=== PATIENT | female | born 1955 | race Caucasian/White ===

== ENCOUNTER → 2020-01-10 10:49 | Outpatient (CLI) | payer BC, SELFPAY ==
--- NOTE | ~2020-01-10 | MM_ITS ---
EXAMINATION: MM screening bailey BI w michell HISTORY: Screening TECHNIQUE: Craniocaudal and mediolateral oblique 3-D tomosynthesis images were obtained and synthetic 2-D images were generated. CAD analysis was submitted and interpreted. COMPARISON: Comparison to multiple prior studies sequentially, with oldest reviewed study dated 08/18. BREAST PARENCHYMAL COMPOSITION: The breasts are heterogenously dense, which may obscure small masses. FINDINGS: There are are multiple developing masses bilaterally which are obscured by fibroglandular t issue. There are no suspicious calcifications. IMPRESSION: 1. Multiple bilateral developing breast masses. 2. Additional mammographic views and possible breast ultrasound are recommended. BI-RADS Category 0: Incomplete: Needs additional imaging evaluation. Reviewed, dictated and finalized at location A. IMPRESSION: 1. Multiple bilateral developing breast masses. 2. Additional mammographic views and possible breast ultrasound are recommended . BI-RADS Category 0: Incomplete: Needs additional imaging evaluation.
== END ==
PROVIDERS: PCP Internal Medicine; Visit Provider Internal Medicine
DX: Z12.31 Encounter for screening mammogram for malignant neoplasm of breast (principal)
CPT/HCPCS: 77063; 77067

== ENCOUNTER 2020-02-02 14:18 | Outpatient (CLI) | payer BC, SELFPAY ==
--- NOTE | ~2020-02-02 | MMUS_ITS ---
EXAMINATION: MM diagnostic mammo BI, US breast BI complete HISTORY: History of previous biopsies. TECHNIQUE: Additional 3-D tomosynthesis images of the breasts were performed and synthetic 2-D images were generated. CAD analysis was submitted and interpreted. High resolution bilateral breast ultraso und was performed. COMPARISON: Comparison to multiple prior studies sequentially, with oldest reviewed study dated 12/08. BREAST PARENCHYMAL COMPOSITION: The breasts are heterogenously dense, which may obscure small masses. FINDINGS: MAMMOGRAPHIC FINDINGS: There are bilateral tissue markers. There are small bilateral masses scattered throughout both breast s which are obscured by dense fibroglandular tissue. There are no suspicious calcifications. ULTRASOUND: Bilateral breast ultrasound: Multiple bilateral cysts throughout both breasts accounting for masses s een on mammography. No solid masses are identified. IMPRESSION: 1. No evidence for malignancy in either breast. Benign findings. 2. Routine yearly screening mammogram and regular clinical breast examination are recommended. BI-RADS Category 2: Benign finding(s). Reviewed, dictated and finalized at location A. CTOR ASSEMBLER IMPRESSION: 1. No evidence for malignancy in either breast. Benign findings. 2. Routine yearly screening mammogram and regular clinical breast examination a re recommended. BI-RADS Category 2: Benign finding(s).
== END 2020-02-02 14:19 | disposition home or self-care (01) ==
LOC: ANHIMG 14:18
PROVIDERS: PCP Internal Medicine; Visit Provider Internal Medicine
DX: R92.8 Other abnormal and inconclusive findings on diagnostic imaging of breast (principal)
CPT/HCPCS: 76641; 77066

== ENCOUNTER 2020-02-14 11:17 | Outpatient (CLI) | payer BC, SELFPAY ==
--- NOTE | ~2020-02-14 | XR_ITS ---
EXAMINATION: XR chest 2V DATE: 02/14/2020 11:39 INDICATION: Malignant neoplasm of right kidney except renal pelvis. TECHNIQUE: Frontal and lateral views of the chest were obtained. COMPARISON: Chest 2 views 02/08/2019, CT abdomen and pelvis 02/01/2018 FINDINGS: The chest demonstrates clear lungs without pneumonia, pleural effusion, or pneumothorax. Th e heart size is normal. There are surgical clips from right nephrectomy. IMPRESSION: 1. No acute cardiopulmonary disease. Reviewed, dictated and finalized at location A. CUTTER HELPER
== END 2020-02-14 11:18 | disposition home or self-care (01) ==
PROVIDERS: PCP Internal Medicine; Visit Provider Urology
DX: C64.1 Malignant neoplasm of right kidney, except renal pelvis (principal)
CPT/HCPCS: 71046

== ENCOUNTER 2021-03-05 13:48 | Outpatient (CLI) | payer MEDICARE, SELFPAY ==
--- NOTE | ~2021-03-05 | XR_ITS ---
EXAMINATION: XR chest 2V DATE: 03/05/2021 14:05 INDICATION: Malignant right kidney post nephrectomy 7 years prior. TECHNIQUE: PA and lateral views of the chest were obtained. COMPARISON: Chest radiograph dated 02/14/2020 FINDINGS: Unchanged small calcified nodule at the left lower lung zone consistent with old granulomatous diseas e. No other airspace opacities, pulmonary edema, pleural effusion or pneumothorax. The cardiomediasti nal silhouette is normal. Mild eventration along the right hemidiaphragm. Surgical clips the right si de of the upper lumbar spine consistent with prior right nephrectomy. IMPRESSION: 1. No acute cardiopulmonary disease. Reviewed, dictated and finalized at location B. DIRECTOR
== END 2021-03-05 13:49 | disposition home or self-care (01) ==
PROVIDERS: PCP Internal Medicine; Visit Provider Urology
DX: C64.1 Malignant neoplasm of right kidney, except renal pelvis (principal)
CPT/HCPCS: 71046

== ENCOUNTER 2021-04-11 08:59 | Outpatient (CLI) | payer MEDICARE, SELFPAY ==
--- NOTE | ~2021-04-11 | MM_ITS ---
EXAMINATION: MM screening bailey BI w michell HISTORY: Screening TECHNIQUE: Craniocaudal and mediolateral oblique 3-D tomosynthesis images were obtained and synthetic 2-D images were generated. CAD analysis was submitted and interpreted. COMPARISON: Comparison to multiple prior studies sequentially, with oldest reviewed study dated 12/08. BREAST PARENCHYMAL COMPOSITION: Breast composed of scattered areas of fibroglandular density. FINDINGS: The right breast is stable without evidence for malignancy. There are developing masses thr oughout the left breast which are partially obscured by fibroglandular tissue. IMPRESSION: 1. Developing left breast masses. 2. Additional mammographic views and possible breast ultrasound are recommended. BI-RADS Category 0: Incomplete: Needs additional imaging evaluation. Reviewed, dictated and finalized at location A. SHEARER IMPRESSION: 1. Developing left breast masses. 2. Additional mammographic views and possible breast ultrasound are recommended . BI-RADS Category 0: Incomplete: Needs additional imaging evaluation.
== END 2021-04-11 09:00 | disposition home or self-care (01) ==
LOC: ANHIMG 09:02
PROVIDERS: PCP Internal Medicine; Visit Provider Internal Medicine
DX: Z12.31 Encounter for screening mammogram for malignant neoplasm of breast (principal); R92.8 Other abnormal and inconclusive findings on diagnostic imaging of breast
CPT/HCPCS: 77063; 77067

== ENCOUNTER 2021-04-30 12:59 | Outpatient (CLI) | payer MEDICARE, SELFPAY ==
--- NOTE | ~2021-04-30 | MMUS_ITS ---
EXAMINATION: MM diagnostic bailey LT w michell, US breast LT complete HISTORY: Follow-up left breast masses TECHNIQUE: Additional 3-D tomosynthesis images of the left breast were performed and synthetic 2-D im ages were generated. CAD analysis was submitted and interpreted. High resolution complete left breast ultrasound was performed. COMPARISON: Comparison to multiple prior studies sequentially, with oldest reviewed study dated 12/10. BREAST PARENCHYMAL COMPOSITION: The breasts are heterogenously dense, which may obscure small masses. FINDINGS: MAMMOGRAPHIC FINDINGS: There are multiple masses scattered throughout the left breast which are partially obscured by fibrog landular tissue. There is a tissue marker in the lower inner quadrant of the left breast from previou s benign biopsy. ULTRASOUND: Complete US of all 4 quadrants of the the left breast and retroareolar region was reviewed. There are multiple cysts of the left breast corresponding to the mammographic findings. The largest is located at 1:00, 4 cm from the nipple measuring 2.3 x 1.7 x 1.9 cm. No suspicious masses to suggest malignan cy. IMPRESSION: 1. No evidence for malignancy in the left breast. Benign findings. 2. Routine yearly screening mammogram and regular clinical breast examination are recommended. BI-RADS Category 2: Benign finding(s). Reviewed, dictated and finalized at location A. ELAIN TURNER IMPRESSION: 1. No evidence for malignancy in the left breast. Benign findings. 2. Routine yearly screening mammogram and regular clinical breast examination a re recommended. BI-RADS Category 2: Benign finding(s).
== END 2021-04-30 13:00 | disposition home or self-care (01) ==
LOC: ANHIMG 13:00
PROVIDERS: PCP Internal Medicine; Visit Provider Internal Medicine
DX: R92.8 Other abnormal and inconclusive findings on diagnostic imaging of breast (principal)
CPT/HCPCS: 76641; 77061; 77065; G0279

== ENCOUNTER 2022-06-26 07:54 | Outpatient (CLI) | payer MEDICARE, SELFPAY ==
--- NOTE | ~2022-06-26 | MM_ITS ---
EXAMINATION: MM screening bailey BI w michell HISTORY: Screening TECHNIQUE: Craniocaudal and mediolateral oblique 3-D tomosynthesis images were obtained and synthetic 2-D images were generated. CAD analysis was submitted and interpreted. COMPARISON: Comparison to multiple prior studies sequentially, with oldest reviewed study dated 08/18. BREAST PARENCHYMAL COMPOSITION: The breasts are heterogeneously dense, which may obscure small masses FINDINGS: There are multiple new bilateral breast masses with other previously identified masses bein g smaller. There are tissue markers in both breasts from previous biopsies. IMPRESSION: 1. Multiple bilateral breast masses some of which are new or larger and some smaller. 2. Additional mammographic views and possible breast ultrasound are recommended. BI-RADS Category 0: Incomplete: Needs additional imaging evaluation. Reviewed, dictated and finalized at location A. IMPRESSION: 1. Multiple bilateral breast masses some of which are new or larger and some sm aller. 2. Additional mammographic views and possible breast ultrasound are recommended . BI-RADS Category 0: Incomplete: Needs additional imaging evaluation.
== END 2022-06-26 07:55 | disposition home or self-care (01) ==
LOC: ANHIMG 07:55
PROVIDERS: PCP Family Medicine; Visit Provider Family Medicine
DX: Z12.31 Encounter for screening mammogram for malignant neoplasm of breast (principal); R92.8 Other abnormal and inconclusive findings on diagnostic imaging of breast
CPT/HCPCS: 77063; 77067

== ENCOUNTER 2022-07-15 13:28 | Outpatient (CLI) | payer MEDICARE, SELFPAY ==
--- NOTE | ~2022-07-15 | MM_ITS ---
EXAMINATION: MM diagnostic bailey BI w michell HISTORY: Bilateral breast masses on screening mammogram TECHNIQUE: Additional 3-D tomosynthesis images of the breasts were performed and synthetic 2-D images were generated. CAD analysis was submitted and interpreted. COMPARISON: 06/26/2022, 05/20/2021, 04/11/2021, 02/02/2020, 01/10/2020 FINDINGS: Spot compression views of the breasts demonstrate bilateral waxing and waning masses. None demonstrate suspicious interval change. No suspicious calcification or architectural distortion are i dentified. IMPRESSION: 1. No mammographic evidence of malignancy. 2. Recommend routine screening mammography in one year. BI-RADS Category 2: Benign finding(s). Reviewed, dictated and finalized at location A.
== END 2022-07-15 13:29 | disposition home or self-care (01) ==
PROVIDERS: PCP Family Medicine; Visit Provider Physician Assistant
DX: R92.8 Other abnormal and inconclusive findings on diagnostic imaging of breast (principal)
CPT/HCPCS: 77062; 77066; G0279

== ENCOUNTER 2023-05-27 08:49 | Outpatient (CLI) | payer MEDICARE, SELFPAY ==
--- NOTE | ~2023-05-27 | DEXA_ITS ---
Bone Density Report Name: JOSELO DIMAS Age: 68 Sex: Female Ethnicity: White Date of : 1955 Indication: postmenopausal; screening for osteoporosis; height loss; hysterectomy; Referring Provider: ALICE CONKLIN Study: Bone densitometry was performed. Exam Date: May 27, 2023 Accession number: [id number] Bone Density: Region BMD T-score Z-score Classification AP Spine(L1-L4) 1.070 0.2 2.2 Normal Femoral Neck (Left) 0.782 -0.6 1.1 Normal Total Hip (Left) 0.986 0.4 1.8 Normal Femoral Neck (Right) 0.794 -0.5 1.2 Normal Total Hip (Right) 1.033 0.7 2.1 Normal Total Hip Mean 1.010 0.6 2.0 Normal World Health Organization criteria for BMD impression classify patients as: Normal (T-score at or above -1.0), Osteopenia (T-score between -1.0 and -2.5), or Osteoporosis (T-score at or below -2.5). 10-year Fracture Risk: FRAX not reported because: All T-scores for Spine Total, Hip Total, Femoral Neck at or above -1.0 Clinical Information Provided by Patient: Has used the following medications: Vitamin D Has the following medical conditions: Hysterectomy Patient maximum height was 67 Menopause Age: 48 No regular weight bearing exercise Does not regularly consume dairy products Drinks caffeinated beverages Onset of menses at age 12 Number of children 3 Impression: The patient has normal bone mass. Discussion: BONE DENSITY IS ABOVE THE MINIMUM DESIRABLE LEVEL AT ALL SKELETAL SITES TESTED. This patient?s bone mineral density is above the minimum desirable level (T-score -1.0 or better) at all sites measured. The patient should follow a healthful lifestyle (good nutrition with adequate calcium and vitamin D, and appropriate weight-bearing exercise). Follow-Up: Consider repeating this study in 5 years or sooner if there is some new clinical indication. Reported by: AURELIO on 05/27/2023 9:16:00 AM. Reviewed, dictated and finalized at location ADayana LEVI
== END 2023-05-27 08:50 | disposition home or self-care (01) ==
LOC: ANHIMG 08:54
PROVIDERS: PCP Family Medicine; Visit Provider Physician Assistant
DX: Z78.0 Asymptomatic menopausal state (principal)
CPT/HCPCS: 77080

== ENCOUNTER 2023-08-21 09:12 | Outpatient (CLI) | payer MEDICARE, SELFPAY ==
--- NOTE | ~2023-08-21 | MM_ITS ---
EXAMINATION: MM screening bailey BI w michell HISTORY: Screening mammogram TECHNIQUE: Craniocaudal and mediolateral oblique 3-D tomosynthesis images were obtained and synthetic 2-D images were generated. CAD analysis was submitted and interpreted. COMPARISON: 07/15/2022 bilateral diagnostic mammogram 04/30/2021 diagnostic left mammogram incomplete left breast ultrasound 02/02/2020 bilateral diagnostic mammography and bilateral complete breast ultrasound examination BREAST PARENCHYMAL COMPOSITION: The breasts are heterogeneously dense, which may obscure small masses . FINDINGS: There are bilateral breast biopsy markers. History of prior bilateral benign breast biopsie s. There is waxing and waning of circumscribed opacities of variable size over serial examinations, cons istent with fibrocystic changes. There is no evidence of suspicious mass, calcification, or architectural distortion to suggest malig barrie in either breast. There has been no suspicious interval change. IMPRESSION: 1. Fibrocystic changes. No mammographic evidence of malignancy. 2. Recommend routine screening mammography in one year. BI-RADS Category 2: Benign finding(s). Reviewed, dictated and finalized at location B.
== END 2023-08-21 09:13 | disposition home or self-care (01) ==
LOC: ANHIMG 09:16
PROVIDERS: PCP Family Medicine; Visit Provider Family Medicine
DX: Z12.31 Encounter for screening mammogram for malignant neoplasm of breast (principal)
CPT/HCPCS: 77063; 77067

== ENCOUNTER 2024-09-01 15:25 | Outpatient (CLI) | payer MEDICARE, SELFPAY ==
--- NOTE | ~2024-09-01 | MM_ITS ---
EXAMINATION: MM screening [facility] BI w michell INDICATION: Asymptomatic, referred for screening mammogram COMPARISON: 08/21/2023 through 01/10/2020 TECHNIQUE: Digital Breast Tomosynthesis CC, MLO views of Both breasts were obtained with computer-ai ded detection to assist in interpretation of the study. FINDINGS: The breasts are heterogeneously dense, which may obscure small masses. There is a mass with partially obscured margins in the inferior medial right breast centered at 4 cm posterior to the nipple. Multiple circumscribed masses seen within the left breast unchanged. Calcif ic clip in both breasts. Elsewhere, there are no mammographic features of malignancy. IMPRESSION: 1. Right breast Mass. 2. No evidence of malignancy in the Left breast. RECOMMENDATION: Right breast Diagnostic mammogram with true lateral, appropriate spot compression views and an ultras ound if needed. BI-RADS 0, INCOMPLETE, NEEDS ADDITIONAL IMAGING EVALUATION Reviewed, dictated and finalized at location B. IMPRESSION: 1. Right breast Mass. 2. No evidence of malignancy in the Left breast. RECOMMENDATION: Right breast Diagnostic mammogram with true lateral, appropriate spot compressi on views and an ultrasound if needed. BI-RADS 0, INCOMPLETE, NEEDS ADDITIONAL IMAGING EVALUATION
--- OUTSIDE RECORDS SUMMARY | 2024-09-01 15:53 | XMS_ITS | Continuity of Care Document ---
Author Organization [facility] Address [address] [place] [address] Phone Care Team Providers Care Fret Saw Operator Name Role Phone [facility] Unavailable Unavail able Carmina Morris Unavailable Unavailable Procedures Procedure Date Vision Svcs Frames Purchases Progressive Lens, Polycarb Polycarb Lens Per Lens Roll And/or Luxembourgish Eye Exam & Treatment Refraction Advance Directives Directive Yes / No Effective Date File Name No Information Encounters Encounter Description Practice Location Reason(s) For Visit Diagnoses Date Provider Providers Copied on Encounter [facility], [address] [place] [address] [address], [place], [place], [id number], [place] tel:[phone] SEC [facility] No Information [address] [facility] . [address] [facility], [facility] [address], [place], [id number], [place]. tel:[phone] Referring Provider: Jonathon Jason, [address], [place], [address]. tel:[phone] g Provider: Carmina Morris, [address] [facility], [place], [address]. tel:[phone] 0833 [facility], [address] [place] [address] [address], [place], [place], [id number], [place] tel:[phone] [facility] No Information 0-200 8 Alejandro OD Jonathon. [address], [place], [address], [place]. tel:[phone] Family History Family Member Type Diagnosis Age At Onset No Information Payers Payer name Insurance type Covered green party ID Jadyn mart(s) [employer] Plan CI [id number] Social History Type Description Quantity Date Captured Comments Sex Female Smoking Status No Information Chief Complaint And Reason For Visit No Information Reason For Referral Reason For Referral No Information History Of Present Illness Encounter Date Complaint History Of Prese nt Illness No Information Functional Status Date Functional Assessmen t No Information Instructions Date Instruction Additional Infor mation No Information Assessments Type Assessment Date No Information Patient Care Teams Name Effective Dates (start - stop) Status Members No Information
--- OUTSIDE RECORDS SUMMARY | 2024-09-01 15:53 | XMS_ITS | Clinical Summary ---
Author Organization [facility] Address [address] [place] [address] Phone Care Team Providers Care Filter Washer Name Role Phone Lidia Chávez MD Primary Care Provider [phone] Allergies No known active allergies Medications lisinopril (PRINIVIL) 10 MG tablet Take 10 mg by mouth 1 (one) time each day 08/07/2020 Active rosuvastatin (CRESTOR) 5 MG tablet Take 5 mg by mouth 1 (one) time each day 08/24/2020 Active hydroCHLOROthiaz zabrina (MICROZIDE) 12.5 MG capsule 11/10/2020 Act juan Active Problems Problem Noted Date Diagnosed Date Personal history of nephrectomy 10/16/2020 Overview (10/16/2020): right Hypertension 10/16/2020 Hyperlipidemia 10/16/2020 Immunizations Immunization Administration Dates Next Due Sars-cov-2, Unspecified 07/08/2020 Family History Medical History Relation Comments Arthritis Father Cancer Father Hypertension Father Cancer Mother Hypertension Mother No Known Problems Paternal Grandmother Relation Status Comments Father Mother Paternal Grandmother Social History Tobacco Use Types Packs/Day Years Used Date Smoking Tobacco: Never Smokeless Tobacco: Never Tobacco Cessation:Counseling Given: Not Answered Alcohol Use Standard Drinks/Week Comments Yes 0 (1 standard drink = 0.6 oz pur e alcohol) Comments Unknown Sex and Gender Information Value Date Recorded Sex Assigned at Not on file Legal Sex Female 11:10 AM MDT Gender Identity Not on file Sexual Orientation Not on file Last Filed Vital Signs Vital Sign Reading Time Taken Comments Blood Pressure 132/76 03/10/2022 2:23 PM ENVIRONMENTAL SERVICES AIDE Pulse - - Temperature 36.5 C (97.7 F) 03/10/2022 2:23 PM ENVIRONMENTAL SERVICES AIDE Respiratory Rate 18 03/10/2022 2:23 PM ENVIRONMENTAL SERVICES AIDE Oxygen Saturation - - Inhaled Oxygen Concentration - - Weight 87.1 kg (192 lb) 03/10/2022 2:23 PM ENVIRONMENTAL SERVICES AIDE Height 170.2 cm (5' 7) 03/10/2022 2:23 PM ENVIRONMENTAL SERVICES AIDE Body Mass Index 30.07 03/10/2022 2:23 PM ENVIRONMENTAL SERVICES AIDE Plan of Treatment Health Maintenance Due Date Last Done Comments Pneumococcal PPSV23/PCV13 65 + Years / Low and Medium Risk (1 of 4 - PCV) 2005 Influenza Vaccine (Season Ended) 2024 Insurance Care Teams Filter Washer Relationship Specialty Start Date End Date Lidia Chávez MD [address] [place] [address] PCP - General Internal Medicine 03/10/22
== END 2024-09-01 15:26 | disposition home or self-care (01) ==
LOC: ANHIMG 15:28
PROVIDERS: PCP Family Medicine; Visit Provider Family Medicine
DX: Z12.31 Encounter for screening mammogram for malignant neoplasm of breast (principal); R92.8 Other abnormal and inconclusive findings on diagnostic imaging of breast
CPT/HCPCS: 77063; 77067

== ENCOUNTER 2024-10-03 12:44 | Outpatient (CLI) | payer MEDICARE, SELFPAY ==
--- NOTE | ~2024-10-03 | MMUS_ITS ---
EXAMINATION: MM diagnostic bailey RT w michell, US breast RT limited HISTORY: New right breast mass TECHNIQUE: Additional 3-D tomosynthesis images of the right breast were performed and synthetic 2-D i mages were generated. CAD analysis was submitted and interpreted. High resolution Limited right breas t ultrasound was performed. COMPARISON: Comparison to multiple prior studies sequentially, with oldest reviewed study dated 04/11. BREAST PARENCHYMAL COMPOSITION: Dense: The breasts are heterogeneously dense, which may obscure small masses FINDINGS: MAMMOGRAPHIC FINDINGS: There is a mass in the medial aspect of the right breast at approximately 3:00 position. There is a t issue marker from previous benign biopsy. There are no suspicious calcifications or architectural dis tortion. ULTRASOUND: Limited right breast ultrasound: At 11:00, 1 cm from the nipple there is a 9 mm cyst. At 12:00, 1 cm from there is an oval hypoechoic parallel oriented mass measuring 9 x 5 x 4 mm with internal vascular ity and slightly irregular lateral margins. At 12:00, 1 cm from the nipple there is an oval hypoechoi c mass measuring 9 mm parallel orientation, circumscribed margins and no internal vascularity, likely benign complicated cyst. At 2:00, 3 cm from the nipple there is a 1.6 cm cyst. At 3:00, 4 cm from th e nipple there is a cluster of microcysts measuring 1 cm. The cyst at 2:00, 3 cm from the nipple like ly corresponds to the mammographic finding. IMPRESSION: 1. Slightly irregular shaped mass at 12:00, 1 cm from the nipple measuring 9 mm. Given the internal v ascularity, follow-up evaluation recommended. 2. Ultrasound-guided right breast biopsy recommended. BI-RADS category 4, suspicious findings. Reviewed, dictated and finalized at location A. IMPRESSION: 1. Slightly irregular shaped mass at 12:00, 1 cm from the nipple measuring 9 mm . Given the internal vascularity, follow-up evaluation recommended. 2. Ultrasound-guided right breast biopsy recommended. BI-RADS category 4, suspicious findings.
--- OUTSIDE RECORDS SUMMARY | 2024-10-03 12:48 | XMS_ITS | Clinical Summary ---
Author Organization [facility] Address [address] [place] [address] Phone Care Team Providers Care Box Lidder Name Role Phone Lidia Chávez MD Primary Care Provider [phone] Allergies No known active allergies Medications lisinopril [...] Comments Blood Pressure 132/76 03/10/2022 2:23 PM COOKING CASING AND DRYING SUPERVISOR Pulse - - Temperature 36.5 C (97.7 F) 03/10/2022 2:23 PM COOKING CASING AND DRYING SUPERVISOR Respiratory Rate 18 03/10/2022 2:23 PM COOKING CASING AND DRYING SUPERVISOR Oxygen Saturation - - Inhaled Oxygen Concentration - - Weight 87.1 kg (192 lb) 03/10/2022 2:23 PM COOKING CASING AND DRYING SUPERVISOR Height 170.2 cm (5' 7) 03/10/2022 2:23 PM COOKING CASING AND DRYING SUPERVISOR Body Mass Index 30.07 03/10/2022 2:23 PM COOKING CASING AND DRYING SUPERVISOR Plan of Treatment Health Maintenance Due Date Last Done Comments Pneumococcal PPSV23/PCV13 65 + Years / Low and Medium Risk (1 of 2 - PCV) 2005 Influenza Vaccine (#1) 2024 Insurance Care Teams Box Lidder Relationship Specialty Start Date End Date Lidia Chávez MD [address] [place] [address] PCP - General Internal Medicine 03/10/22
--- OUTSIDE RECORDS SUMMARY | 2024-10-03 12:48 | XMS_ITS | Continuity of Care Document ---
Author Organization [facility] Address [address] [place] [address] Phone Care Team Providers Care Schedule Supervisor Name Role Phone [facility] Unavailable Unavail able Carmina Morris Unavailable Unavailable Procedures Procedure Date Vision Svcs Frames Purchases Progressive Lens, Polycarb Polycarb Lens Per Lens Roll And/or Serbian Eye Exam & Treatment Refraction Advance Directives Directive Yes / No Effective Date File Name No Information Encounters Encounter Description Practice Location Reason(s) For Visit Diagnoses Date Provider Providers Copied on Encounter [facility], [address] [place] [address] [address], [place], [place], [id number], [place] tel:[phone] [facility] No Information [address] [facility] . [address] [facility], [facility] [address], [place], [address], [place]. tel:[phone] Referring Provider: Jonathon Jason, [address], [place], [address]. tel:[phone] g Provider: Carmina Morris, [address] [facility], [place], [address]. tel:[phone] 8846 [facility], [address] [place] [address] [address], [place], [place], [address], [place] tel:[phone] [facility] No Information 0-200 8 Alejandro OD Jonathon. [address], [place], [address], [place]. tel:[phone] Family History Family Member Type Diagnosis Age At Onset No Information Payers Payer name Insurance type Covered republican ID Jadyn mart(s) [employer] Plan CI [id number] Social History Type Description Quantity Date Captured [...]
== END 2024-10-03 12:45 | disposition home or self-care (01) ==
PROVIDERS: PCP Family Medicine; Visit Provider Family Medicine
DX: R92.8 Other abnormal and inconclusive findings on diagnostic imaging of breast (principal)
CPT/HCPCS: 76642; 77061; 77065; G0279

== ENCOUNTER 2024-10-19 07:48 | Outpatient (CLI) | payer MEDICARE, SELFPAY ==
--- NOTE | ~2024-10-19 | US_ITS ---
EXAMINATION: US breast LT limited HISTORY: 69-year old female; with retracted left nipple referred by clinician for imaging evaluation. Patient states that her retracted nipple has been present for many years. COMPARISON: Mammograms dating back to 01/10/2020 FINDINGS: Targeted ultrasound of the subareolar left breast shows multiple cysts, some of which has fluid debris level. The largest is a simple cyst at 12:00, 1 cm from the nipple that measure 1.2 x 1 .2 x 1.8 cm. No suspicious cystic or solid mass seen. IMPRESSION: Benign appearing cysts that correlate to stable benign appearing masses on the mammography examinatio n. There is no suspicious cystic or solid mass that account for patient's chronic nipple retraction. BI-RADS 2, BENIGN Recommend continued screening mammography. Reviewed, dictated and finalized at location [] IMPRESSION: Benign appearing cysts that correlate to stable benign appearing masses on the mammography examination. There is no suspicious cystic or solid mass that accou nt for patient's chronic nipple retraction. BI-RADS 2, BENIGN Recommend continued screening mammography.
--- NOTE | ~2024-10-19 | MMUS_ITS ---
PROCEDURE: US breast biopsy RT w image, MM post biopsy diagnostic RT CLINICAL HISTORY: 69-year-old female with suspicious right breast mass at the o'clock location presen ts for ultrasound-guided core needle biopsy procedure. COMPARISON: 10/03/2024 Following informed consent including risks, benefits, and possible complications, the patient was bro ught to the ultrasound suite. A time-out procedure was performed. A preliminary ultrasound of the ri t breast was performed, redemonstrating enhancing hypoechoic mass at 12:00, 1 cm from the nipple. The patient was prepped and draped in the usual sterile fashion. 1% lidocaine was instilled into the subcutaneous tissues. 1% lidocaine with epinephrine was injected into the deep tissues just inferior to the lesion. Approximately 15cc lidocaine was administered. A small skin mason was made. Multiple co re samples were obtained with a 14-gauge multi pass biopsy needle. A post biopsy metal marker was adrien gavin at the biopsy site. Postprocedural mammogram of the right breast in craniocaudal and mediolateral projections reveal the post biopsy metal marker in good position. The patient tolerated the procedure well and was without i mmediate postprocedural complications. IMPRESSION: Successful ultrasound guided biopsy of right breast mass. A post biopsy metal marker was placed at the biopsy site, which is seen on postprocedural mammogram. The patient tolerated the procedure well without immediate postprocedure complications. The patient w as given postprocedural instructions and sent home in stable condition. Reviewed, dictated and finalized at location B. IMPRESSION: Successful ultrasound guided biopsy of right breast mass. A post bi opsy metal marker was placed at the biopsy site, which is seen on postprocedura l mammogram. The patient tolerated the procedure well without immediate postprocedure compli cations. The patient was given postprocedural instructions and sent home in sta ble condition.
--- OUTSIDE RECORDS SUMMARY | 2024-10-19 07:58 | XMS_ITS | Continuity of Care Document ---
Author Organization [facility] Address [address] [place] [address] Phone Care Team Providers Care Sighter Name Role Phone [facility] Unavailable Unavail able Carmina Morris Unavailable Unavailable Procedures Procedure Date Vision Svcs Frames Purchases Progressive Lens, Polycarb Polycarb Lens Per Lens Roll And/or Romansh Eye Exam & Treatment Refraction Advance Directives Directive Yes / No Effective Date File Name No Information Encounters Encounter Description Practice Location Reason(s) For Visit Diagnoses Date Provider Providers Copied on Encounter [facility], [address] [place] [address] [address], [place], [place], [id number], [place] tel:[phone] [facility] No Information 5200 9 [facility] . [address] [facility], [place] [address], [place], [address], [place]. tel:[phone] Referring Provider: Jonathon Jason, [address], [place], [address]. tel:[phone] g Provider: Carmina Morris, [address] [facility], [place], [address]. tel:[phone] [facility], [address] [place] [address] [address], [place], [place], [id number], [place] tel:[phone] [facility] No Information 0-200 8 Alejandro OD Jonathon. [address], [place], [address], [place]. tel:[phone] Family History Family Member Type Diagnosis Age At Onset No Information Payers Payer name Insurance type Covered alliance party ID Jadyn mart(s) [employer] Plan CI [id number] Social History Type Description Quantity Date Captured [...]
--- OUTSIDE RECORDS SUMMARY | 2024-10-19 07:58 | XMS_ITS | Clinical Summary ---
Author Organization [facility] Address [address] [place] [address] Phone Care Team Providers Care Executive Housekeeper Name Role Phone Lidia Chávez MD Primary Care Provider [phone] Allergies No known active allergies Medications lisinopril [...] Comments Blood Pressure 132/76 03/10/2022 2:23 PM GENERAL PARTNER Pulse - - Temperature 36.5 C (97.7 F) 03/10/2022 2:23 PM GENERAL PARTNER Respiratory Rate 18 03/10/2022 2:23 PM GENERAL PARTNER Oxygen Saturation - - Inhaled Oxygen Concentration - - Weight 87.1 kg (192 lb) 03/10/2022 2:23 PM GENERAL PARTNER Height 170.2 cm (5' 7) 03/10/2022 2:23 PM GENERAL PARTNER Body Mass Index 30.07 03/10/2022 2:23 PM GENERAL PARTNER Plan of Treatment Health Maintenance Due Date Last Done Comments Pneumococcal PPSV23/PCV13 65 + Years / Low and Medium Risk (1 of 2 - PCV) 2005 Influenza Vaccine (#1) 2024 Insurance Care Teams Executive Housekeeper Relationship Specialty Start Date End Date Lidia Chávez MD [address] [place] [address] PCP - General Internal Medicine 03/10/22
--- NOTE | 2024-10-19 09:19 | S_PTH ---
PATIENT: Nehal Latif LOC: [facility] U#:[id number] AGE/SX: 69/F ROOM: RE10/19/[address]: Jerilyn Mays MD : 1955 BED: DIS: 10/19/2024 SPEC #: [id number] RECD: 10/19/24 10:12 STATUS: CHEN REDawit #: [id number] DEVIN: 10/19/24 09:[address]: Jerilyn Mays DEPT: [facility] Surgical RECD BY: Taylor Santacruz ENTERED: 10/19/24 10:12 SP TYPE: Surgical OTHR DR: Lidia Chávez, Tissues: A - Breast Biopsy Procedures: Hematoxylin and Eosin Stain Gross and Microscopic Level 4
== END 2024-10-19 07:49 | disposition home or self-care (01) ==
LOC: ANHIMG 07:54
PROVIDERS: PCP Family Medicine; Visit Provider Surgery
DX: N64.59 Other signs and symptoms in breast (principal); N63.15 Unspecified lump in the right breast, overlapping quadrants
CPT/HCPCS: 19083; 76642; 77065; 88305; A4648

== ENCOUNTER 2024-11-03 08:43 | Outpatient (CLI) | payer MEDICARE, SELFPAY ==
--- NOTE | ~2024-11-03 | MMUS_ITS ---
EXAMINATION: US_MAGSEEDRT_US, MM post biopsy diagnostic RT CLINICAL HISTORY: 69 year old female with discordant RIGHT breast benign lesion containing metallic c lip diagnosed at Ultrasound-guided core needle biopsy on 10/19/2024. Patient presents for ultrasound g uided Magseed localization of the clip within the lesion in the 12 o'clock right breast. After informed consent was obtained, the patient was brought into the ultrasound room. A time-out pro cedure was performed. Preliminary images of the right breast were obtained to localize the target. A needle was then placed into the breast and ultrasound images were obtained to confirm position of the needle. The Magseed clip deployed immediately adjacent to the biopsy clip. Postprocedure mammogram o f the right breast showed the Magseed in good position. IMPRESSION: Successful ultrasound-guided Magseed localization of right breast lesion. The patient to lerated the procedure well with no immediate post procedure complications. Reviewed, dictated and finalized at location B. IMPRESSION: Successful ultrasound-guided Magseed localization of right breast l esion. The patient tolerated the procedure well with no immediate post procedu re complications.
--- OUTSIDE RECORDS SUMMARY | 2024-11-03 08:47 | XMS_ITS | Continuity of Care Document ---
Author Organization [facility] Address [address] [place] [address] Phone Care Team Providers Care Measurement Coordinator Name Role Phone [facility] Unavailable Unavail able Carmina Morris Unavailable Unavailable Procedures Procedure Date Vision Svcs Frames Purchases Progressive Lens, Polycarb Polycarb Lens Per Lens Roll And/or Hebrew Eye Exam & Treatment Refraction Advance Directives Directive Yes / No Effective Date File Name No Information Encounters Encounter Description Practice Location Reason(s) For Visit Diagnoses Date Provider Providers Copied on Encounter [facility], [address] [place] [address] [address], [place], [place], [id number], [place] tel:[phone] [facility] No Information 5200 9 [facility] . [address] [facility], [facility] [address], [place], [id number], [place]. tel:[phone] Referring Provider: Jonathon Jason, [address], [place], [address]. tel:[phone] g Provider: Carmina Morris, [address] [facility], [place], [address]. tel:[phone] [facility], [address] [place] [address] [address], [place], [place], [address], [place] tel:[phone] [facility] No Information 0-200 8 Alejandro OD Jonathon. [address], [place], [address], [place]. tel:[phone] Family History Family Member Type Diagnosis Age At Onset No Information Payers Payer name Insurance type Covered constitution party ID Jadyn mart(s) [employer] [facility] Plan CI [id number] Social History Type Description Quantity Date Captured [...]
--- OUTSIDE RECORDS SUMMARY | 2024-11-03 08:47 | XMS_ITS | Clinical Summary ---
Author Organization [facility] Address [address] [place] [address] Phone Care Team Providers Care Seed Cone Picker Name Role Phone Lidia Chávez MD Primary Care Provider [phone] Allergies No known active allergies Medications lisinopril [...] Comments Blood Pressure 132/76 03/10/2022 2:23 PM MIS SPECIALIST Pulse - - Temperature 36.5 C (97.7 F) 03/10/2022 2:23 PM MIS SPECIALIST Respiratory Rate 18 03/10/2022 2:23 PM MIS SPECIALIST Oxygen Saturation - - Inhaled Oxygen Concentration - - Weight 87.1 kg (192 lb) 03/10/2022 2:23 PM MIS SPECIALIST Height 170.2 cm (5' 7) 03/10/2022 2:23 PM MIS SPECIALIST Body Mass Index 30.07 03/10/2022 2:23 PM MIS SPECIALIST Plan of Treatment Health Maintenance Due Date Last Done Comments Pneumococcal PPSV23/PCV13 65 + Years / Low and Medium Risk (1 of 2 - PCV) 2005 Influenza Vaccine (#1) 2024 Insurance Care Teams Seed Cone Picker Relationship Specialty Start Date End Date Lidia Chávez MD [address] [place] [address] PCP - General Internal Medicine 03/10/22
== END 2024-11-03 08:44 | disposition home or self-care (01) ==
PROVIDERS: PCP Family Medicine; Visit Provider Surgery
DX: N63.15 Unspecified lump in the right breast, overlapping quadrants (principal)
CPT/HCPCS: 19285; 77065; A4648

== ENCOUNTER 2024-11-04 07:50 | Outpatient (CLI) | payer MEDICARE, SELFPAY ==
--- OUTSIDE RECORDS SUMMARY | 2024-11-04 07:59 | XMS_ITS | Clinical Summary ---
Author Organization [facility] Address [address] [place] [address] Phone Care Team Providers Care Network Support Name Role Phone Lidia Chávez MD Primary Care Provider [phone] Allergies No known active allergies Medications lisinopril [...] Comments Blood Pressure 132/76 03/10/2022 2:23 PM REAL ESTATE DEVELOPER Pulse - - Temperature 36.5 C (97.7 F) 03/10/2022 2:23 PM REAL ESTATE DEVELOPER Respiratory Rate 18 03/10/2022 2:23 PM REAL ESTATE DEVELOPER Oxygen Saturation - - Inhaled Oxygen Concentration - - Weight 87.1 kg (192 lb) 03/10/2022 2:23 PM REAL ESTATE DEVELOPER Height 170.2 cm (5' 7) 03/10/2022 2:23 PM REAL ESTATE DEVELOPER Body Mass Index 30.07 03/10/2022 2:23 PM REAL ESTATE DEVELOPER Plan of Treatment Health Maintenance Due Date Last Done Comments Pneumococcal PPSV23/PCV13 65 + Years / Low and Medium Risk (1 of 2 - PCV) 2005 Influenza Vaccine (#1) 2024 Insurance Care Teams Network Support Relationship Specialty Start Date End Date Lidia Chávez MD [address] [place] [address] PCP - General Internal Medicine 03/10/22
--- OUTSIDE RECORDS SUMMARY | 2024-11-04 07:59 | XMS_ITS | Continuity of Care Document ---
Author Organization [facility] Address [address] [place] [address] Phone Care Team Providers Care Chart Calculator Name Role Phone [facility] Unavailable Unavail able Carmina Morris Unavailable Unavailable Procedures Procedure Date Vision Svcs Frames Purchases Progressive Lens, Polycarb Polycarb Lens Per Lens Roll And/or French Eye Exam & Treatment Refraction Advance Directives Directive Yes / No Effective Date File Name No Information Encounters Encounter Description Practice Location Reason(s) For Visit Diagnoses Date Provider Providers Copied on Encounter [facility], [address] [place] [address] [address], [place], [place], [id number], [place] tel:[phone] [facility] No Information 5200 9 [facility] . [address] [facility], [facility] [address], [place], [address], [place]. tel:[phone] Referring Provider: Jonathon Jason, [address], [place], [address]. tel:[phone] g Provider: Carmina Morris, [address] [facility], [place], [address]. tel:[phone] formerly [facility], [address] [place] [address] [address], [place], [place], [address], [place] tel:[phone] [facility] No Information 0-200 8 Alejandro OD Jonathon. [address], [place], [address], [place]. tel:[phone] Family History Family Member Type Diagnosis Age At Onset No Information Payers Payer name Insurance type Covered green party ID Jadyn mart(s) [employer] Plan CI [id number] Social History Type Description Quantity Date Captured [...]
--- NOTE | 2024-11-04 08:00 | ECG_ITS ---
Test Date: 2024-11-04 08:02:18 Measurements Intervals [place]ountain Rate: 64 P: 38 SD: 135 QRS: -39 QRSD: 83 T: -39 QT: 382 QTc: 395 Interpretive Statements SINUS RHYTHM LEFT AXIS DEVIATION LEFT ATRIAL ENLARGEMENT POOR R WAVE PROGRESSION ST-T WAVE ABNORMALITY IN ANTEROLAT/INF LEADS- CONSIDER ISCHEMIA BASELINE ARTIFACT- I, II, III, AVR, AVL, AVF, V4-V6 ABNORMAL ECG No previous ECG available for comparison Electronically Signed On 11-04-2024 08:16:23 CDT by Dilshad Cole D.O.
[2024-11-04 08:23] LABS: INR 0.9; Prothrombin Time 12.4 Seconds (11.1-14.7)
[2024-11-04 08:25] LABS: Partial Thromboplastin Time 29.4 Seconds (22.3-36.8)
[2024-11-04 08:31] LABS: Anion Gap 9 mmol/L (4-12); Blood Urea Nitrogen 17 mg/dL (7-17); Calcium 9.9 mg/dL (8.4-10.2); Carbon Dioxide 25 mmol/L (22-30); Chloride 107 mmol/L (98-107); Estimated Glomerular Filt Rate 44; Glucose 101 mg/dL (65-110); Potassium 4.4 mmol/L (3.4-5.0); Sodium 141 mmol/L (137-145)
== END 2024-11-04 07:51 | disposition home or self-care (01) ==
LOC: ANHSURGERY 07:54
PROVIDERS: Anesthesiology; PCP Family Medicine; Visit Provider Surgery
DX: I12.9 Hypertensive chronic kidney disease with stage 1 through stage 4 chronic kidney disease, or unspecified chronic kidney disease (principal); N18.32 Chronic kidney disease, stage 3b; Z01.818 Encounter for other preprocedural examination
CPT/HCPCS: 36415; 80048; 85610; 85730; 93005

== ENCOUNTER 2024-11-10 02:23 | Day surgery (SDC) | payer MEDICARE, SELFPAY ==
--- NOTE | 2024-11-02 09:30 | PC.NURSE ---
Report to the Outpatient Waiting Room, entrance under the green pavilion located off [facility], at time _6am on date __11/10/24 . Planned Procedure Time: __7:30 am .? Time changes happen often and if your time is changed the preop area will call you the afternoon before. - You and your visitor will be asked to self-screen and do not enter if you have any COVID symptoms. Please call surgeon if you need to reschedule. - A mask is optional within the hospital at this time. Patients may have clear liquids (water, carbonated beverages, clear teas, apple juice) until 3 hours prior to surgery ( 4:30 am) with a maximum of 20 ounces. - No food from midnight until time of surgery and no smoking, or chewing tobacco (or any form of nicotine). No chewing gum, candy or mints. - Take only the following medications with a SIP of water on the morning of surgery: _ESCITALOPRAM DO NOT STOP ANY OF YOUR OTHER PRESCRIPTION MEDICATIONS PRIOR TO SURGERY EXCEPT THE FOLLOWING Hold all vitamins and supplements for 3 days per anesthesiologist.LAST DOSE 11/06/24 Medications to discontinue per physician NONE Please no make-up, nail setswana, hairspray, perfume, deodorant, or body powder the day of surgery.? No jewelry (including any body piercings) or valuables the day of surgery, leave them at home.? Please take a shower or bath the night before, or the morning of, surgery with an antibacterial soap.? Wear comfortable, loose fitting clothing.? Children are encouraged to wear pajamas. - Jewelry must be removed prior to entering the operating room.? Rings and piercings that are not removed may be cut off. - The hospital will not accept responsibility for valuables.? - Please leave all valuables, including medications, at home the day of surgery. If you are going home after surgery, a licensed driver manager must drive you home.? - NO public transportation without another adult if you receive anesthesia. - We recommend that an adult stay with you for 24 hours following discharge. - We also recommend that you do not drive, make important decision, drink alcoholic beverages, or take any drugs that were not prescribed by your health care provider for at least 24 hours after your discharge time. Follow any additional instructions given to you from your surgeon. Telephone instructions given to __PATIENT and asked if any additional questions and then verbalized understanding. Patient advised to call surgeon office or pre surgery nurse liaison [phone] if any additional questions.
[2024-11-02 09:41] VITALS: BMI 29.7
[2024-11-10] VITALS (8 sets, daily range): BP systolic 121–155; BP diastolic 59–82; PULSE 64–81; RESP 10–16; TEMP 36.2; O2SAT 98–100
--- NOTE | ~2024-11-10 | MM_ITS ---
[id number] 11/10/2024 08:34 Indication: Post surgical biopsy of right breast Procedure: Faxitron trauma image of biopsy specimen Comparison: 11/13/2024 Findings: Postbiopsy specimen contains 2 markers of interest from previous biopsies. Impression: 1: Specimen contains biopsy markers. Please refer to procedural report for details. Reviewed, dictated and finalized at location A. Impression: 1: Specimen contains biopsy markers. Please refer to procedural report for deta ils.
[2024-11-10] MEDS: LACTATED RINGERS 1,000 ML 30 ML IV CONT (06:15)
[2024-11-10] MEDS: ACETAMINOPHEN 500 MG TABLET 1000 MG PO (06:15)
--- NOTE | 2024-11-10 07:04 | WPDHPUPDATE1 ---
History and Physical Update Update Date/Time: 11/10/24 07:04 - Right breast lumpectomy with Mag seed localization, possible adjacent tissue transfer. History and Physical has been reviewed, including an updated exam of the patient. There are NO changes in the patient's condition. Risks, benefits, and alternatives have been discussed and questions answered. Patient agrees to proceed with procedure.
--- NOTE | 2024-11-10 07:24 | P.PNAN_ITS ---
Anes - Initial Pre Proc Eval Procedure: Operation Date: 11/10/24 07:30 Proposed Procedures p Right Breast Lumpectomy with Mag Seed Localization, Possible Adjacent Tissue Transfer - Jerilyn Mays MD Date/Time: 11/10/24 07:24 Surgeon: Jerilyn Mays MD Pre Op Diagnosis: unspec lump right breast Patient Data Age: 69 Gender: F Height: 1.65 m Weight: 81.2 kg Allergies Allergy/AdvReac Type Severity Reaction Status Date / Time No Known Allergies Allergy Verified 11/02/24 09:28 Home Medications ?Medication ?Instructions ?Recorded ?Confirmed ?Type cholecalciferol (vitamin D3) 50 50 mcg PO DAILY 03/04/21 11/02/24 History mcg (2,000 unit) capsule famotidine 20 mg tablet 20 mg PO DAILY 03/04/21 11/02/24 History cetirizine 10 mg capsule (Zyrtec) 10 mg PO DAILY PRN allergy symptoms 02/12/22 11/02/24 History lisinopril 10 mg tablet 10 mg PO DAILY #90 tabs 04/18/24 11/02/24 Rx rosuvastatin 5 mg tablet (Crestor) 5 mg PO DAILY #90 tabs 04/18/24 11/02/24 Rx escitalopram oxalate 5 mg tablet 5 mg PO DAILY #30 tabs 10/18/24 11/02/24 Rx Patient hx anesthesia problems: none Family hx anesthesia problems: none Results Review: All pre-operative results and documents have been reviewed as part of the pre- operative evaluation. [facility] Past Medical History Medical History Basal cell carcinoma CKD (chronic kidney disease) HTN (hypertension) GERD (gastroesophageal reflux disease) Cancer of kidney Seasonal allergies Abnormal mammogram of both breasts Surgical History Surgical History H/O: hysterectomy Family History Family History Sibling Hypertension Family history of rheumatoid arthritis Father Family history of glaucoma Hypertension Family history of gastrointestinal disorder Patient's father is in good health Family history of arthritis Family history of malignant neoplasm Mother Hypertension Family history of malignant neoplasm Other Carcinoma of colon Cerebrovascular accident Social History Social History Smoking status: Never smoker Second hand tobacco smoke exposure: No Alcohol intake: current Alcohol use details: 1-2 per month. wine or beer. Substance use: never Substance use type: does not use Do You Feel Safe in your Home?: Yes Lack of Transportation: No Lack of Food: Never True Current Housing: I Have Housing Concerned About Future Housing: No Difficulty Paying Gas/Electric Bills: No Difficulty Paying for Meds: No Currently Unemployed: No Education: Associate Degree Difficulty w/ Childcare or Family Care: No Living arrangements: with family Gender identity (if verbalized by the patient): Female Spiritual care concerns: No Agree to blood products: Yes Anes - Eval Final PreProcedure Day of Procedure 11/10/24 07:24 Patient weight: normal Heart: regular rate and rhythm Lungs: clear to auscultation Airway: Mallampati scale class II Neurological: alert and oriented Last oral intake: >/= 8 hours ASA classification: III Emergent: no Anesthetic plan: proceed Anesthesia type and monitoring: general LMA and standard monitoring Results Review: All pre-operative results and documents have been reviewed as part of the pre- operative evaluation. Informed Consent: The patient's anesthetic plan and its attendant risks and benefits were discussed with the patient/family/POA. Questions were solicited and answers provided to the satisfaction of the patient/family/POA.
[2024-11-10] MEDS: ceFAZolin 2 GM in SODIUM CHLORIDE 0.9% IV 50 ML 100 ML IVPB (07:32)
--- NOTE | 2024-11-10 08:25 | S_PTH ---
PATIENT: Nehal Latif LOC: [facility] U#:[id number] AGE/SX: 69/F ROOM: RE11/10/[address]: Jerilyn Mays MD : 1955 BED: DIS: 11/10/2024 SPEC #: [id number] RECD: 11/10/24 08:39 STATUS: CHEN REQ #: [id number] DEVIN: 11/10/24 08:[address]: Jerilyn Mays DEPT: [facility] Surgical RECD BY: Taylor Santacruz ENTERED: 11/10/24 08:42 SP TYPE: Surgical OTHR DR: Lidia Chávez, Tissues: A - Breast Lumpectomy B - Breast Tissue Procedures: Hematoxylin and Eosin Stain Gross and Microscopic Level 4 Gross and Microscopic Level 5
--- NOTE | 2024-11-10 08:45 | W.PM.PROC2 ---
Procedure Note - Detailed Date of Procedure 11/10/24 Pre-op Diagnosis Right breast mass with discordant core needle biopsy findings Post-op Diagnosis Same Procedure Performed Right breast lumpectomy with magseed localization Surgeon Jerilyn Mays MD Anesthesia MAC Description of Procedure Patient was identified in the pre-operative area and brought to the OR suite. She underwent tumor localization previously by IR with magseed placement. She was laid supine in the operating table and sequential compression devices were applied. General anesthesia was induced without difficulties. The right chest was prepped and draped in a sterile fashion. The sentimag probe was used to identify the area where the magseed was placed and a superior periareolar incision was made. Dissection was carried down through the subcutaneous tissue into the breast tissue. The area of concern was identified using sentimag probe, and a rim of normal breast tissue was excised along with the mass as our lumpectomy specimen. Once the specimen was completely excised, it was oriented using surgical paint according to machine hose cutter instructions. The specimen was placed in the faxitron and 2 radiographs were obtained and sent to Radiology for radiographic confirmation of mass, biopsy marker and magseed within the specimen. Once the radiographic confirmation was received, the wound was irrigated with saline and hemostasis was assured. The deep dermal layer was approximated using interrupted 3-0 vicryl followed by 4-0 monocryl for the skin. Dermabond was applied followed by a surgical bra. Patient was awoken from anesthesia and taken to the recovery area in stable condition. All needles, instruments and sponge counts were correct as reported by the operating room staff. Patient tolerated the procedure well with no immediate complications. Estimated Blood Loss 10 Pathology Yes Complications No immediate complications Condition Stable Disposition PACU [facility] Billing Surgery - Charge Forward: Surgery Billing (CPT 60651)
[2024-11-10] MEDS: oxyCODONE HCL (*CRX) 5 MG TAB IR PO (09:57)
--- NOTE | 2024-11-10 16:33 | WPDANESPN ---
Anes - Prog Note Post-Op Date/Time: 11/10/24 16:33 Cardiovascular status: normal Respiratory status: normal Airway patency: baseline Mental status: baseline Post-Op hydration status: normal Vital Signs: Last Vital Signs Temp 36.2 C L 11/10/24 08:54 Pulse 64 11/10/24 10:40 Resp 16 11/10/24 10:40 BP 121/69 11/10/24 10:40 Pulse Ox 98 11/10/24 09:34 O2 Del Method Room Air 11/10/24 10:40 O2 Flow Rate 8 11/10/24 09:05 Pain Score (VAS): 3 I/O: Intake & Output 11/10/24 11/10/24 11/10/24 07:59 15:59 23:59 Intake Total 100 Balance 100 Post-procedural complaints: none Other Findings: Dr. Mays called to ask if tongue swelling could be caused from her LMA placement earlier today and if we could evaluate patient. I evaluated and saw some redness on back of pharynx. Not knowing patient's baseline tongue size it doesn't appear overly large but doesn't look traumatic in nature. I explained to patient that sore throat could be explained by LMA which would be expected but tongue swelling appears to be a different issue. More likely some allergic reaction or related to the lisinopril however will defer to ER physician for medical decision making.
== END 2024-11-10 10:48 | disposition home or self-care (01) ==
PROVIDERS: PCP Family Medicine; Visit Provider Surgery
PROC: (CPT 19301; principal; 2024-11-10 07:30)
DX: D24.1 Benign neoplasm of right breast (principal); I12.9 Hypertensive chronic kidney disease with stage 1 through stage 4 chronic kidney disease, or unspecified chronic kidney disease; N18.9 Chronic kidney disease, unspecified; K21.9 Gastro-esophageal reflux disease without esophagitis; Z98.890 Other specified postprocedural states; Z85.528 Personal history of other malignant neoplasm of kidney; Z85.828 Personal history of other malignant neoplasm of skin; Z80.0 Family history of malignant neoplasm of digestive organs
CPT/HCPCS: 19301; 76098; 88305; 88307; 96372; 96374; 96375; 99284; J0690; A9270; J0166; J1100; J1200; J1596; J2003; J2250; J2405; J2704; J3010; J7120; Q9968

== ENCOUNTER 2024-11-10 14:46 | Emergency (ER) | payer MEDICARE, SELFPAY ==
[2024-11-10] VITALS (23 sets, daily range): BP systolic 115–148; BP diastolic 48–98; PULSE 63–82; RESP 12–16; TEMP 36.5; O2SAT 94–98
--- OUTSIDE RECORDS SUMMARY | 2024-11-10 14:48 | XMS_ITS | Clinical Summary ---
Author Organization [facility] dos santos Address [address] [place] [phone] Phone Care Team Providers Care Operator And Truck Driver Name Role Phone Lidia Chávez MD Primary Care Provider [phone] Allergies No known active allergies Medications lisinopril [...] Comments Blood Pressure 132/76 03/10/2022 2:23 PM CAR PUSHER Pulse - - Temperature 36.5 C (97.7 F) 03/10/2022 2:23 PM CAR PUSHER Respiratory Rate 18 03/10/2022 2:23 PM CAR PUSHER Oxygen Saturation - - Inhaled Oxygen Concentration - - Weight 87.1 kg (192 lb) 03/10/2022 2:23 PM CAR PUSHER Height 170.2 cm (5' 7) 03/10/2022 2:23 PM CAR PUSHER Body Mass Index 30.07 03/10/2022 2:23 PM CAR PUSHER Plan of Treatment Health Maintenance Due Date Last Done Comments Pneumococcal PPSV23/PCV13 65 + Years / Low and Medium Risk (1 of 2 - PCV) 2005 Influenza Vaccine (#1) 2024 Insurance Care Teams Operator And Truck Driver Relationship Specialty Start Date End Date Lidia Chávez MD [address] [place] [address] PCP - General Internal Medicine 03/10/22
--- OUTSIDE RECORDS SUMMARY | 2024-11-10 14:48 | XMS_ITS | Continuity of Care Document ---
Author Organization [facility] Address [address] [place] [address] Phone Care Team Providers Care Automobile Lights Assembler Name Role Phone [facility] Unavailable Unavail able Carmina Morris Unavailable Unavailable Procedures Procedure Date Vision Svcs Frames Purchases Progressive Lens, Polycarb Polycarb Lens Per Lens Roll And/or [place] Eye Exam & Treatment Refraction Advance Directives Directive Yes / No Effective Date File Name No Information Encounters Encounter Description Practice Location Reason(s) For Visit Diagnoses Date Provider Providers Copied on Encounter [facility], [address] [place] [address] [address], [place], [place], [id number], [place] tel:[phone] SEC [facility] No Information 5[address] [facility] . [address] [facility], [facility] [address], [place], [id number], [place]. tel:[phone] Referring Provider: Jonathon Jason, [address], [place], [address]. tel:[phone] g Provider: Carmina Morris, [address] [facility], [place], [address]. tel:[phone] 5858 [facility], [address] [place] [address] [address], [place], [place], [id number], [place] tel:[phone] [facility] No Information 0-200 8 Alejandro OD Jonathon. [address], [place], [address], [place]. tel:[phone] Family History Family Member Type Diagnosis Age At Onset No Information Payers Payer name Insurance type Covered alliance party ID Jadyn mart(s) [employer] [facility] Plan CI [id number] Social History Type Description Quantity Date Captured [...]
[2024-11-10] MEDS: dexAMETHasone SOD PHOS INJ 10 MG/ML 1 ML VIAL (15:02)
[2024-11-10] MEDS: FAMOTIDINE 20 MG/2 ML VIAL (15:02)
[2024-11-10] MEDS: EPINEPHrine HCL INJ 1 MG/ML AMPUL (15:02)
--- NOTE | 2024-11-10 15:03 | ED.GENADULT ---
HPI - General Adult General Chief complaint: Allergic Reaction Stated complaint: allergic reaction Time Seen by Provider: 11/10/24 14:49 History of Present Illness HPI narrative: This is a 69-year-old female presenting with tongue swelling. Patient had a lumpectomy performed earlier today at our hospital. During that time she was sedated and an LMA was placed. She went home and when she woke up at 2:00 p.m. she noticed that her tongue was significantly larger. It makes it hard to breathe when she is laying flat if she sits up it does not cause her any issues. She is able to swallow her own secretions. She is not short of breath. She does not have any other signs of allergic reaction including hives, wheezing, nausea vomiting or diarrhea. She is on lisinopril. Related Data Home Medications ?Medication ?Instructions ?Recorded ?Confirmed ?Last Taken ?Type cholecalciferol (vitamin D3) 50 50 mcg PO DAILY 03/04/21 11/02/24 Unknown History mcg (2,000 unit) capsule famotidine 20 mg tablet 20 mg PO DAILY 03/04/21 11/02/24 Unknown History cetirizine 10 mg capsule (Zyrtec) 10 mg PO DAILY PRN allergy symptoms 02/12/22 11/02/24 Unknown History Allergies Allergy/AdvReac Type Severity Reaction Status Date / Time No Known Allergies Allergy Verified 11/10/24 15:02 [facility] Past Medical History Medical History Basal cell carcinoma CKD (chronic kidney disease) HTN (hypertension) GERD (gastroesophageal reflux disease) Cancer of kidney Seasonal allergies Abnormal mammogram of both breasts Surgical History Surgical History H/O: hysterectomy Family History Family History Sibling Hypertension Family history of rheumatoid arthritis Father Family history of glaucoma Hypertension Family history of gastrointestinal disorder Patient's father is in good health Family history of arthritis Family history of malignant neoplasm Mother Hypertension Family history of malignant neoplasm Other Carcinoma of colon Cerebrovascular accident Social History Social History Smoking status: Never smoker Second hand tobacco smoke exposure: No Alcohol intake: current Alcohol use details: 1-2 per month. wine or beer. Substance use: never Substance use type: does not use Do You Feel Safe in your Home?: Yes Lack of Transportation: No Lack of Food: Never True Current Housing: I Have Housing Concerned About Future Housing: No Difficulty Paying Gas/Electric Bills: No Difficulty Paying for Meds: No Currently Unemployed: No Education: Associate Degree Difficulty w/ Childcare or Family Care: No Living arrangements: with family Gender identity (if verbalized by the patient): Female Spiritual care concerns: No Agree to blood products: Yes Exam Narrative: APPEARANCE: No apparent distress. Head: Swelling to the tongue, worse on the left and right. No swelling of the uvula. No voice changes. Patient is tolerating her own secretions, bruising to the frenulum EYES: EOMI, NOSE: Atraumatic NECK: Trachea midline RESPIRATORY: No increased rate of breathing CARDIOVASCULAR: RRR, ABDOMINAL: Non-distended MUSCULOSKELETAl: No obvious deformities NEURO: Alert. Moving 4/4 extremities SKIN:: Warm, dry. Normal color PSYCHIATRIC: Normal affect Course Vital Signs Vital signs: Vital Signs Temperature 97.7 F 11/10/24 15:02 Pulse Rate 82 11/10/24 15:02 Respiratory Rate 16 11/10/24 15:02 Blood Pressure 139/98 H 11/10/24 15:02 Pulse Oximetry 98 11/10/24 15:02 Oxygen Delivery Room Air 11/10/24 15:02 Temperature 97.7 F 11/10/24 15:02 Pulse Rate 69 11/10/24 17:15 Respiratory Rate 12 11/10/24 17:15 Blood Pressure 126/65 11/10/24 17:15 Pulse Oximetry 97 11/10/24 17:15 Oxygen Delivery Room Air 11/10/24 15:05 Medical Decision Making [facility] Narrative Medical decision making narrative: -Course: 69-year-old female presenting swelling of her tongue. Multiple possible causes including traumatic LMA placement, lisinopril angioedema or allergic reaction. Allergic last reaction less likely given she does not have any hives or other signs of anaphylaxis. There appears to be some bruising to the frenulum underneath her tongue although it is unclear if that occurred during her element placement or after tongue was already swollen. Patient treated with epinephrine, dexamethasone Benadryl Pepcid. Patient closely monitored for signs of worsening tongue swelling. It was explained to the patient that she may need to be intubated and she is in agreement. Will continue to monitor. Patient was monitored for 4 hours. Her tongue continued to improve. We discussed possible causes. She will follow-up with her primary care physician in regards to alternative to her lisinopril. She has been given return precautions and is comfortable returning she is to worsen. -DDX includes but is not limited to: Traumatic LMA placement, Vital Signs Vital Signs: Vital Signs Temperature 97.7 F 11/10/24 15:02 Pulse Rate 82 11/10/24 15:02 Respiratory Rate 16 11/10/24 15:02 Blood Pressure 139/98 H 11/10/24 15:02 Pulse Oximetry 98 11/10/24 15:02 Oxygen Delivery Room Air 11/10/24 15:02 Temperature 97.7 F 11/10/24 15:02 Pulse Rate 69 11/10/24 17:15 Respiratory Rate 12 11/10/24 17:15 Blood Pressure 126/65 11/10/24 17:15 Pulse Oximetry 97 11/10/24 17:15 Oxygen Delivery Room Air 11/10/24 15:05 Discharge Plan Discharge Clinical Impression: Tongue swelling Patient Disposition: Home Condition: Stable Instructions: Antibiotic Form, Angioedema (ED) Additional Instructions: You were seen in the emergency department for tongue swelling. Your swelling has improved. It is unclear as the cause as a could have been caused by the LMA placement, lisinopril usage or allergic reaction. Please follow-up with your primary care physician to discuss further lisinopril use. If you feel that your tongue is swelling please return to emergency department immediately as this can be a life-threatening reaction. Please discontinue your lisinopril til you discuss it with Dr. Valles Patient Language: Greenlandic Prescriptions: No Action cholecalciferol (vitamin D3) 50 mcg (2,000 unit) capsule 50 mcg PO DAILY famotidine 20 mg tablet 20 mg PO DAILY Zyrtec 10 mg capsule 10 mg PO DAILY PRN (Reason: allergy symptoms) escitalopram oxalate 5 mg tablet 5 mg PO DAILY Qty: 30 0RF hydrocodone-acetaminophen 5-325 mg tablet 1 tablet PO Q6H PRN (Reason: pain) Qty: 10 0RF lisinopril 10 mg tablet 10 mg PO DAILY Qty: 90 1RF rosuvastatin [Crestor] 5 mg tablet 5 mg PO DAILY Qty: 90 1RF Follow-up/Referrals: Lidia Chávez MD [Primary Care Provider] - 1 Day (Angioedema)
--- OUTSIDE RECORDS SUMMARY | 2024-11-10 15:08 | XMS_ITS | Clinical Summary ---
Author Organization [facility] Address [address] [place] [address] Phone Care Team Providers Care Solo Truck Driver Name Role Phone Lidia Chávez MD Primary Care Provider [phone] Allergies No known active allergies Medications lisinopril [...] Comments Blood Pressure 132/76 03/10/2022 2:23 PM MANAGER INTEGRATED Pulse - - Temperature 36.5 C (97.7 F) 03/10/2022 2:23 PM MANAGER INTEGRATED Respiratory Rate 18 03/10/2022 2:23 PM MANAGER INTEGRATED Oxygen Saturation - - Inhaled Oxygen Concentration - - Weight 87.1 kg (192 lb) 03/10/2022 2:23 PM MANAGER INTEGRATED Height 170.2 cm (5' 7) 03/10/2022 2:23 PM MANAGER INTEGRATED Body Mass Index 30.07 03/10/2022 2:23 PM MANAGER INTEGRATED Plan of Treatment Health Maintenance Due Date Last Done Comments Pneumococcal PPSV23/PCV13 65 + Years / Low and Medium Risk (1 of 2 - PCV) 2005 Influenza Vaccine (#1) 2024 Insurance Care Teams Solo Truck Driver Relationship Specialty Start Date End Date Lidia Chávez MD [address] [place] [address] PCP - General Internal Medicine 03/10/22
--- OUTSIDE RECORDS SUMMARY | 2024-11-10 15:08 | XMS_ITS | Continuity of Care Document ---
Author Organization [facility] Address [address] [place] [address] Phone Care Team Providers Care Tennis Ball Coverer Hand Name Role Phone [facility] Unavailable Unavail able Carmina Morris Unavailable Unavailable Procedures Procedure Date Vision Svcs Frames Purchases Progressive Lens, Polycarb Polycarb Lens Per Lens Roll And/or Tong[place] Eye Exam & Treatment Refraction Advance Directives Directive Yes / No Effective Date File Name No Information Encounters Encounter Description Practice Location Reason(s) For Visit Diagnoses Date Provider Providers Copied on Encounter [facility], [address] [place] [address] [address], [place], [place], [id number], [place] tel:[phone] SEC [facility] No Information 5[address] 9 [facility] . [address] [facility], [facility] [address], [place], [id number], [place]. tel:[phone] Referring Provider: Jonathon Jason, [address], [place], [address]. tel:[phone] g Provider: Carmina Morris, [address] [facility], [place], [address]. tel:[phone] 4809 [facility], [address] [place] [address] [address], [place], [place], [id number], [place] tel:[phone] [facility] No Information 0-200 8 Alejandro OD Jonathon. [address], [place], [address], [place]. tel:[phone] Family History Family Member Type Diagnosis Age At Onset No Information Payers Payer name Insurance type Covered constitution party ID Jadyn mart(s) [employer] Plan CI [id number] Social History Type Description Quantity Date Captured [...]
--- NOTE | 2024-11-10 17:10 | PC.NURSE ---
Report given to NICANOR Sanders
--- NOTE | 2024-11-10 18:33 | PC.NURSE ---
Pt continues to report improvement in her tongue swelling. Has not developed any new symptoms. MD Pierson updated. MD Pierson to bedside to speak with patient/re-evaluate.
== END 2024-11-10 19:40 | disposition home or self-care (01) ==
PROVIDERS: Emergency Provider Emergency Medicine; PCP Family Medicine
DX: K14.0 Glossitis (principal); I12.9 Hypertensive chronic kidney disease with stage 1 through stage 4 chronic kidney disease, or unspecified chronic kidney disease; N18.9 Chronic kidney disease, unspecified; K21.9 Gastro-esophageal reflux disease without esophagitis; Z85.528 Personal history of other malignant neoplasm of kidney; Z85.828 Personal history of other malignant neoplasm of skin; Z90.710 Acquired absence of both cervix and uterus; Z79.899 Other long term (current) drug therapy
CPT/HCPCS: 96372; 96374; 96375; 99284; J0166; J1100; J1200